=== PATIENT | male | born 1975 | race African-American/Black ===

== ENCOUNTER 2016-10-13 06:56 | Emergency (ER) | payer SELFPAY ==
[~2016-10-13] VITALS: Ht 182.9 cm; Wt 95.3 kg
[2016-10-13 07:09] VITALS: BP_DIAS 112
[2016-10-13 07:45] LABS: BASO % 1 % (0-3); EOS % 0 % (0-3); LYMPH # 0.7 x10^3/uL (1.0-4.8); LYMPH % 14 % (24-48); MEAN CORPUSCULAR HEMOGLOBIN 29 pg (25-35); MEAN CORPUSCULAR HGB CONC 33 g/dL (31-37); MEAN CORPUSCULAR VOLUME 87 fL (79-100); MONO % 5 % (0-9); NEUT % 80 % (31-73); PLATELET COUNT 188 x10^3/uL (140-400); RED BLOOD COUNT 5.19 x10^6/uL (4.30-5.70); RED CELL DISTRIBUTION WIDTH 13.6 % (11.5-14.5); WHITE BLOOD COUNT 4.9 x10^3/uL (4.0-11.0)
[2016-10-13] MEDS ORDERED: ONDANSETRON PF 4 MG/2 ML VIAL. IV ONE (07:45)
[2016-10-13] MEDS ORDERED: FAMOTIDINE 20 MG/2 ML VIAL IVP ONE (07:45)
[2016-10-13 07:53] LABS: PROTHROMBIN TIME PATIENT 12.9 SEC (11.7-14.0)
--- NOTE | 2016-10-13 07:56 | EKG ---
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
[2016-10-13 07:59] LABS: CALCIUM 9.7 mg/dL (8.5-10.1); CREATININE 1.2 mg/dL (0.7-1.3); GFR 80.7
--- NOTE | 2016-10-13 08:01 | PHYS DOC ---
Past Medical History Past Medical History: Constipation, Hypertension Past Surgical History: Other Additional Past Surgical Histo: back Alcohol Use: None Drug Use: None Adult General Chief Complaint Chief Complaint: SHORTNESS OF BREATH HPI HPI Patient is a 41 year old male with history of constipation and hypertension who presents today complaining of moderate mid epigastric abdominal pain nonradiating in nature that woke him up at 4 AM this morning with bilateral lower extremity weakness that he noted walking to his car this morning, he states they pack their vehicles very far out and they have to walk quite a bit to get to their vehicles. Patient denies any nausea vomiting. Patient states he had a normal bowel movement this morning. Patient denies he is constipated today. He states the last time he had similar symptoms he was told he was constipated. He is requesting morphine for pain. Review of Systems Review of Systems Constitutional: Denies fever or chills [] Eyes: Denies change in visual acuity, redness, or eye pain [] HENT: Denies nasal congestion or sore throat [] Respiratory: Denies cough or shortness of breath [] Cardiovascular: No additional information not addressed in HPI [] GI: Midepigastric abdominal pain : Denies dysuria or hematuria [] Musculoskeletal: Denies back pain or joint pain [] Integument: Denies rash or skin lesions [] Neurologic: Denies headache, focal weakness or sensory changes [] Endocrine: Denies polyuria or polydipsia [] Current Medications Current Medications Current Medications Medications (Trade) Dose Ordered Sig/Maddy Start Time Stop Time Status Last Admin Dose Admin Famotidine (Pepcid) 20 mg 1X ONCE 10/13/16 07:45 10/13/16 07:46 DC 10/13/16 07:52 20 MG Ketorolac Tromethamine (Toradol) 30 mg 1X ONCE 10/13/16 09:45 10/13/16 09:46 DC 10/13/16 09:40 30 MG Ondansetron HCl (Zofran) 4 mg 1X ONCE 10/13/16 07:45 10/13/16 07:46 DC 10/13/16 07:52 4 MG Allergies Allergies Allergies Coded Allergies Type Severity Reaction Last Updated Verified codeine Allergy Intermediate 10/13/16 Yes Physical Exam Physical Exam Constitutional: Well developed, well nourished, no acute distress, non-toxic appearance. [] HENT: Normocephalic, atraumatic, bilateral external ears normal, oropharynx moist, no oral exudates, nose normal. [] Eyes: PERRLA, EOMI, conjunctiva normal, no discharge. [] Neck: Normal range of motion, no tenderness, supple, no stridor. [] Cardiovascular:Heart rate regular rhythm, no murmur [] Lungs & Thorax: Bilateral breath sounds clear to auscultation [] Abdomen: abdomen appears distended, with normal bowel sounds, mild midepigastric tenderness, no right lower quadrant tenderness or right upper quadrant tenderness no masses, no pulsatile masses. [] Skin: Warm, dry, no erythema, no rash. [] Back: No tenderness, no CVA tenderness. [] Extremities: No tenderness, no cyanosis, no clubbing, ROM intact, no edema. [] Neurologic: Alert and oriented X 3, normal motor function, normal sensory function, no focal deficits noted. [] Psychologic: Affect normal, judgement normal, mood normal. [] Current Patient Data Vital Signs Vital Signs Date Time Temp Pulse Resp B/P (MAP) Pulse Ox O2 Delivery O2 Flow Rate FiO2 10/13/16 07:09 98.8 82 20 166/112 (130) 98 Room Air 98.8 Lab Values Laboratory Tests Test 10/13/16 07:25 10/13/16 08:20 White Blood Count 4.9 x10^3/uL (4.0-11.0) Red Blood Count 5.19 x10^6/uL (4.30-5.70) Hemoglobin 15.0 g/dL (13.0-17.5) Hematocrit 45.0 % (39.0-53.0) Mean Corpuscular Volume 87 fL (79-100) Mean Corpuscular Hemoglobin 29 pg (25-35) Mean Corpuscular Hemoglobin Concent 33 g/dL (31-37) Red Cell Distribution Width 13.6 % (11.5-14.5) Platelet Count 188 x10^3/uL (140-400) Neutrophils (%) (Auto) 80 % (31-73) H Lymphocytes (%) (Auto) 14 % (24-48) L Monocytes (%) (Auto) 5 % (0-9) Eosinophils (%) (Auto) 0 % (0-3) Basophils (%) (Auto) 1 % (0-3) Neutrophils # (Auto) 3.9 x10^3uL (1.8-7.7) Lymphocytes # (Auto) 0.7 x10^3/uL (1.0-4.8) L Monocytes # (Auto) 0.3 x10^3/uL (0.0-1.1) Eosinophils # (Auto) 0.0 x10^3/uL (0.0-0.7) Basophils # (Auto) 0.0 x10^3/uL (0.0-0.2) Prothrombin Time 12.9 SEC (11.7-14.0) Prothrombin Time INR 1.0 (0.8-1.1) D-Dimer (Marilu) 0.27 ug/mlFEU (0.00-0.50) Sodium Level 143 mmol/L (136-145) Potassium Level 4.0 mmol/L (3.5-5.1) Chloride Level 107 mmol/L (98-107) Carbon Dioxide Level 27 mmol/L (21-32) Anion Gap 9 (6-14) Blood Urea Nitrogen 16 mg/dL (8-26) Creatinine 1.2 mg/dL (0.7-1.3) Estimated GFR (Cockcroft-Gault) 80.7 BUN/Creatinine Ratio 13 (6-20) Glucose Level 125 mg/dL (70-99) H Calcium Level 9.7 mg/dL (8.5-10.1) Magnesium Level 1.8 mg/dL (1.8-2.4) Total Bilirubin 0.2 mg/dL (0.2-1.0) Aspartate Amino Transferase (AST) 15 U/L (15-37) Alanine Aminotransferase (ALT) 27 U/L (16-63) Alkaline Phosphatase 75 U/L (46-116) Creatine Kinase 164 U/L (39-308) Creatine Kinase MB (Mass) 0.9 ng/mL (0.0-3.6) Creatine Kinase MB Relative Index 0.5 % (0-4) Troponin I Quantitative < 0.017 ng/mL (0.000-0.055) YJ-Tny-S-Type Natriuretic Peptide < 5 pg/mL (0-124) Total Protein 7.0 g/dL (6.4-8.2) Albumin 3.9 g/dL (3.4-5.0) Albumin/Globulin Ratio 1.3 (1.0-1.7) Lipase 181 U/L (73-393) Thyroid Stimulating Hormone (TSH) 1.551 uIU/mL (0.358-3.74) Ethyl Alcohol Level < 10 mg/dL (0-10) Urine Collection Type Unknown Urine Color Yellow Urine Clarity Cloudy Urine pH 8.0 Urine Specific [place] 1.020 Urine Protein Negative mg/dL (NEG-TRACE) Urine Glucose (UA) Negative mg/dL (NEG) Urine Ketones (Stick) Negative mg/dL (NEG) Urine Blood Negative (NEG) Urine Nitrite Negative (NEG) Urine Bilirubin Negative (NEG) Urine Urobilinogen Dipstick 0.2 mg/dL (0.2 mg/dL) Urine Leukocyte Esterase Negative (NEG) Urine RBC 0 /HPF (0-2) Urine WBC 0 /HPF (0-4) Urine Amorphous Sediment Present /HPF Urine Bacteria 0 /HPF (0-FEW) Urine Opiates Screen Neg (NEG) Urine Methadone Screen Neg (NEG) Urine Barbiturates Neg (NEG) Urine Phencyclidine Screen Neg (NEG) Urine Amphetamine/Methamphetamine Neg (NEG) Urine Benzodiazepines Screen Neg (NEG) Urine Cocaine Screen Neg (NEG) Urine Cannabinoids Screen Neg (NEG) Urine Ethyl Alcohol Neg (NEG) Laboratory Tests 10/13/16 07:25 Laboratory Tests 10/13/16 07:25 EKG EKG [] Radiology/Procedures Radiology/Procedures [] Course & Med Decision Making Course & Med Decision Making Pertinent Labs and Imaging studies reviewed. (See chart for details) This is a 41-year-old male patient who presents to the ED with midepigastric abdominal pain and bilateral lower extremity weakness that began this morning. Patient states the last time he had similar symptoms was constipated. He has been asking for more often since he came to the ED. He is constantly getting out of his room asking for morphine. I talked to this patient on the relationship of the relationship of constipation. Patient's labs including including cardiac workup are negative for any acute findings. Chest x-ray and head CT were negative for any acute findings. Noted for stool and gas in the colon. Patient be discharged with instructions to follow-up with the PCP in 1-2 weeks. Discharged with 10 tablets of Ultram for pain and Mag citrate. Dragon Disclaimer Dragon Disclaimer This electronic medical record was generated, in whole or in part, using a voice recognition dictation system. Departure Departure Impression: Primary Impression: Abdominal pain Additional Impression: Constipation Disposition: 01 HOME, SELF-CARE Condition: STABLE Patient Instructions: Abdominal Pain, Constipation, Adult Additional Instructions: You seen for abdominal pain. You were noted for stool and gas in your colon. Avoid taking narcotics because it increases your risk for constipation episodes. Increase your dietary fiber intake, increase your water intake. Scripts Magnesium Citrate (MAGNESIUM CITRATE) 296 Ml Solution 296 ML PO ONCE, #296 ML Prov: JOSÉ MIGUEL IRBY APRN 10/13/16 Tramadol Hcl (ULTRAM) 50 Mg Tablet 1 TAB PO Q6HRS, #10 TAB Prov: JOSÉ MIGUEL IRBY APRN 10/13/16 Problem Qualifiers Primary Impression: Abdominal pain Abdominal location: epigastric Qualified Codes: R10.13 - Epigastric pain Additional Impression: Constipation Constipation type: unspecified constipation type Qualified Codes: K59.00 - Constipation, unspecified JOSÉ MIGUEL IRBY APRN Oct 13, 2016 08:01
[2016-10-13 08:05] LABS: ALBUMIN 3.9 g/dL (3.4-5.0); ALBUMIN/GLOBULIN RATIO 1.3 (1.0-1.7); MAGNESIUM 1.8 mg/dL (1.8-2.4); TOTAL BILIRUBIN 0.2 mg/dL (0.2-1.0)
[2016-10-13 08:12] LABS: CKMB MASS 0.9 ng/mL (0.0-3.6); CREATINE KINASE 164 U/L (39-308)
--- NOTE | 2016-10-13 08:23 | RAD ---
Indication lower extremity weakness. Suspect CVA. Noncontrast images of the head were obtained and are compared to an examination over 9 years earlier. No acute or significant calvarial finding is seen. There is no significant finding seen in the visualized mastoid air cells or paranasal sinuses. A polyp or retention cyst is noted in the right maxillary sinus. There is no subdural or epidural hematoma. The ventricles and sulci are normal. There is no mass or midline shift. No hemorrhage is seen. No acute intracranial finding is apparent. IMPRESSION: No acute intracranial finding PQRS Compliance Statement: One or more of the following individualized dose reduction techniques were utilized for this examination: 1. Automated exposure control 2. Adjustment of the mA and/or kV according to patient size 3. Use of iterative reconstruction technique
[2016-10-13 08:27] LABS: BILIRUBIN,URINE NEGATIVE (NEG); GLUCOSE,URINE NEGATIVE (NEG); NITRITE,URINE NEGATIVE (NEG); PROTEIN,URINE NEGATIVE (NEG-TRACE); UROBILINOGEN,URINE 0.2 mg/dL (0.2 mg/dL)
--- NOTE | 2016-10-13 08:29 | RAD ---
Indication abdominal pain. A single view of the chest as well as flat and upright films of the abdomen were obtained. No prior imaging of the chest or abdomen is available. Heart size and pulmonary vessels are normal. No acute parenchymal infiltrate in either lung is seen. Significant pleural fluid is not present and there is no pneumothorax. Scoliosis and a Rodriguez mary lou are noted. There is no evidence of free air. There is very little gas in the small bowel. Gas and stool is seen in the right and transverse colon. No organomegaly or definite abnormal calculi are seen. IMPRESSION: No acute finding seen in the chest or abdomen on plain films
[2016-10-13 08:32] LABS: BACTERIA,URINE 0 /HPF (0-FEW); RBC,URINE 0 /HPF (0-2); WBC,URINE 0 /HPF (0-4)
[2016-10-13 08:35] LABS: BARBITURATES NEG (NEG); BENZODIAZEPINES NEG (NEG); CANNABINOIDS NEG (NEG); COCAINE NEG (NEG); METHADONE NEG (NEG); OPIATES NEG (NEG); PHENCYCLIDINE NEG (NEG)
[2016-10-13] MEDS ORDERED: KETOROLAC TROMETHAMINE 30 MG/ML INJ. IV ONE (09:45)
[2016-10-13] MEDS ORDERED: MAGN296S9 PO (09:53)
[2016-10-13] MEDS ORDERED: TRAM-48 PO (09:53)
[2016-10-13 10:00] VITALS: BP_SYST 96
== END 2016-10-13 10:02 | disposition home or self-care (01) ==
LOC: ER 06:56
DX: K59.00 Constipation, unspecified (principal); R53.1 Weakness; I10 Essential (primary) hypertension; Z88.5 Allergy status to narcotic agent
CPT/HCPCS: 36415; 70450; 74022; 80053; 80307; 81001; 82553; 83690; 83735; 83880; 84443; 84484; 85027; 85379; 85610; 93005; 96374; 96375; 99285; G0480; J1885; J2405; S0028; G0479

== ENCOUNTER 2016-12-07 15:39 | Emergency (ER) | payer BC ==
[~2016-12-07] VITALS: Ht 182.9 cm; Wt 99.8 kg
[~2016-12-07 15:39] MED LIST: MAGN296S9 PO; TRAM-48 PO
[2016-12-07 16:18] VITALS: BP 142/95
--- NOTE | 2016-12-07 16:27 | PHYS DOC ---
Past Medical History Past Medical History: Constipation, Hypertension Past Surgical History: Other Additional Past Surgical Histo: back Alcohol Use: None Drug Use: None Adult General Chief Complaint Chief Complaint: BACK PAIN OR INJURY HPI HPI Patient is a 41 year old male with history of hypertension and constipation who presents today with mild right anterior hip pain that began 3 weeks ago after he fell in the home. Patient denies any loss of consciousness when he fell. Patient denies any loss of bowel bladder function. He has history of chronic low back pain Review of Systems Review of Systems Constitutional: Denies fever or chills [] GI: Denies abdominal pain, nausea, vomiting, bloody stools or diarrhea [] : Denies dysuria or hematuria [] Musculoskeletal: Right hip pain Integument: Denies rash or skin lesions [] Neurologic: Denies headache, focal weakness or sensory changes [] Allergies Allergies Allergies Coded Allergies Type Severity Reaction Last Updated Verified codeine Allergy Intermediate 10/13/16 Yes Physical Exam Physical Exam Constitutional: Well developed, well nourished, no acute distress, non-toxic appearance. [] Abdomen: Bowel sounds normal, soft, no tenderness, no masses, no pulsatile masses. [] Skin: Warm, dry, no erythema, no rash. [] Back: No tenderness, no CVA tenderness. [] Extremities: No tenderness, no cyanosis, no clubbing, ROM intact, no edema. [] Neurologic: Alert and oriented X 3, normal motor function, normal sensory function, no focal deficits noted. [] Psychologic: Affect normal, judgement normal, mood normal. [] Current Patient Data Vital Signs Vital Signs Date Time Temp Pulse Resp B/P (MAP) Pulse Ox O2 Delivery O2 Flow Rate FiO2 12/07/16 16:18 98.1 60 16 98 Room Air 98.1 EKG EKG [] Radiology/Procedures Radiology/Procedures [] Course & Med Decision Making Course & Med Decision Making Pertinent Labs and Imaging studies reviewed. (See chart for details) This is a 41-year-old male patient presenting to the right hip pain. He states he fell down 3 weeks ago. Right hip x-rays including pelvic interpreted by were negative for any acute findings. Patient was discharged with Ultram and Robaxin. Instructed to follow-up with his own PCP in 1-2 weeks. Ice elevation recommended. Dragon Disclaimer Dragon Disclaimer This electronic medical record was generated, in whole or in part, using a voice recognition dictation system. Departure Departure Impression: Primary Impression: Contusion of right hip Disposition: HOME, SELF-CARE Condition: STABLE Referrals: NO PCP (PCP) Follow up with your doctor in the next 7 days. TANJA MORALES MD follow up in the next seven days Patient Instructions: Contusion, [id number] Additional Instructions: You were seen with right hip contusion after falling. Your right hip x-rays including pelvic were negative for any acute findings. We discharged you with medications to help with the pain. Do not drive or operate machinery on those medications. Follow-up with your doctor next week. Scripts Tramadol Hcl (ULTRAM) 50 Mg Tablet 1 TAB PO Q6HRS, #30 TAB Prov: JOSÉ MIGUEL IRBY APRN 12/07/16 Methocarbamol (ROBAXIN) 500 Mg Tablet 1 TAB PO TID, #30 TAB Prov: JOSÉ MIGUEL IRBY APRN 12/07/16 Problem Qualifiers Primary Impression: Contusion of right hip Encounter type: initial encounter Qualified Codes: S70.01XA - Contusion of right hip, initial encounter JOSÉ MIGUEL IRBY APRN Dec 07, 2016 16:27
[2016-12-07] MEDS ORDERED: METH-37 PO (17:04)
[2016-12-07] MEDS ORDERED: TRAM-48 PO (17:04)
--- NOTE | 2016-12-08 08:54 | RAD ---
Right hip 2 views with one view pelvis. History: Pain Single view was taken of the pelvis. Left hip is unremarkable. Pelvis is intact without osseous abnormality. AP and lateral views were taken of the right hip. There is no fracture or acute osseous abnormality. There is mild scoliosis in the lumbar spine with a mary lou which suggests previous fusion. Impression: 1. Negative right hip.
== END 2016-12-07 17:09 | disposition home or self-care (01) ==
LOC: ER 15:39
DX: S70.01XA Contusion of right hip, initial encounter (principal); I10 Essential (primary) hypertension; G89.29 Other chronic pain; Z88.5 Allergy status to narcotic agent; W18.39XA Other fall on same level, initial encounter; Y93.89 Activity, other specified; Y92.009 Unspecified place in unspecified non-institutional (private) residence as the place of occurrence of the external cause; Y99.8 Other external cause status
CPT/HCPCS: 73502; 99284

== ENCOUNTER → 2016-12-31 | Outpatient (CLI) | payer BC ==
[2016-12-07 16:18] VITALS: BP 142/95
[~2016-12-31] MED LIST changes: +METH-37 PO; +REGADENOSON 0.4 MG/5 ML DISP.SYRIN. IV ONE
--- NOTE | 2016-12-31 12:34 | RAD ---
APPROVED REPORT Test Type: Pharmacological Stress Nurse/Tech: meghna millan Test Indications: chest pain Cardiac History: HTN, SEE EHR Medications: SEE EHR Medical History: NONE STATED Resting ECG: SR Resting Heart Rate: 64 bpm Resting Blood Pressure: 127/89mmHg Pretest Chest Pain: No chest pain Nurse/Tech Notes LUNG SOUNDS CLEAR, S1S2 WNL. Consent: The procedure was explained to the patient in lay terms. Informed consent was witnessed. Christian eout was entered into [employer]. History and Stress Test performed by RT Giovanna (R) (N) Pharm. Details Pharmacologic stress testing was performed using 0.4mg per 5ml of regadenoson given intravenously ove r 7-10 seconds. Stress Symptoms HEADACHE. POST EXERCISE Reason for Termination: Infusion complete Max HR: 116 bpm Max Blood Pressure: 133/93mmHg Chest Pain: No. Arrhythmia: No. ST Change: No. INTERPRETATION Stress EKG Conclusion: No evidence of vasodilator stress induced ischemia. Non-specific ST/T changes. Imaging Protocol IMAGE PROTOCOL: Rest Tc-99m/stress Tc-99m 1 day Rest: Stress: Viability: Radiopharm.Tc99m EemjwefbnNm47u Sestamibi Rptt32eFt 31mCi Img Date 12/31/2016 12/31/2016 Inj-Img Tusl51vlb. 60min. Rest Admin Site:IV - Right AntecubitalAdministrator:TASIA Sanchez, MACOT (R)(N) Stress Admin Site: IV - Right AntecubitalAdministrator: RT Goivanna (R)(N) STRESS DATA End Diast. Vol.114.0mlAv. Heart Rate65.0bpm End Syst. Vol.37.0mlCO Index BSA0.0L/min Myocardial Tyyi235.0gEject. Kupwhuyj34.0% Stress Rates Pk. Fill Rate2.86EDV/secLVtime Pk. Fill 220.00msec Pk. Empty Rate3.57ESV/secLVtime Pk. Efoam500.31msec 03/12 Pk. Fill1.25EDV/sec Stress Scores Regional WT0.00Summed WT4.00 Regional WM0.00Summed WM1.00 The rest and stress images show normal perfusion, normal contraction and thickening. LV Perf. Quant 17 Seg. SSS0.00 17 Seg. SRS1.00 17 Seg. SDS0.00 Stress Defect Extent (% LAD)0.00Rest Defect Extent (% LAD)0.00Rev. Defect Extent (% LAD)0.00 Stress Defect Extent (% LCX) 0.00Rest Defect Extent (% LCX)0.00Rev. Defect Extent (% LCX)0.00 Stress Defect Extent (% RCA)0.00Rest Defect Extent (% RCA)11.10Rev. Defect Extent (% RCA)0.00 Stress Defect Extent (% BOOM)0.00Rest Defect Extent (% BOOM)2.20Rev. Defect Extent (% BOOM)0.00 Other Information Quality:Fair Risk Assessment: Low Risk Conclusion 1. No evidence of stress induced EKG changes to suggest ischemia with vasodilator infusion 2. Normal perfusion at stress/rest 3. Normal EF at > 65% 4. Low risk study
--- NOTE | 2017-01-01 07:44 | CARD ---
APPROVED REPORT EXAM: Two-dimensional and M-mode echocardiogram with Doppler and color Doppler. Other Information Quality : Good INDICATION Chest Pain 2D DIMENSIONS Left Atrium(2D)3.5 (1.6-4.0cm)IVSd1.2 (0.7-1.1cm) Aortic Root(2D)3.1 (2.0-3.7cm)LVDd5.2 (3.9-5.9cm) LVOT Diameter2.0 (1.8-2.4cm)PWd1.2 (0.7-1.1cm) LVDs3.4 (2.5-4.0cm)FS (%) 34.6 % SV82.2 mlLVEF(%)63.4 (>50%) Aortic Valve AoV Peak Ilya.128.0cm/sAoV VTI28.5cm AO Peak GR.6.6mmHgLVOT Peak Ilya.110.4cm/s AO Mean GR.3mmHgAVA (VMAX)2.74cm2 DULCE (VTI)2.70cm2 Mitral Valve MV E Sfbdgugp33.7cm/sMV DECEL JKBY212ry MV A Qpuodotc58.6cm/sE/A Ratio1.4 Tricuspid Valve TR P. Sxcuudls295vj/sRAP ETKGFUDY9oaSv TR Peak Gr.23hsVsJYFP97ymMu LEFT VENTRICLE The left ventricle is normal size. There is mild concentric left ventricular hypertrophy. Left ventri devin systolic function is normal. The Ejection Fraction is 55-60%. There is normal LV segmental wall m otion. RIGHT VENTRICLE The right ventricle is normal size. The right ventricular systolic function is normal. ATRIA The left atrium size is normal. The right atrium size is normal. Chiari network is noted in the right atrium. The interatrial septum is intact with no evidence for an atrial septal defect or patent fora men ovale as noted on 2-D or Doppler imaging. AORTIC VALVE The aortic valve is normal in structure and function. Doppler and Color Flow revealed no significant aortic regurgitation. There is no significant aortic valvular stenosis. MITRAL VALVE The mitral valve is normal in structure and function. There is no evidence of mitral valve prolapse. There is no mitral valve stenosis. Doppler and Color Flow revealed no mitral valve regurgitation note d. TRICUSPID VALVE The tricuspid valve is normal in structure and function. Doppler and Color Flow revealed trace tricus pid valve regurgitation. The PA pressure was estimated at 25 mmHg. There is no tricuspid valve stenos is. PULMONIC VALVE The pulmonary valve is normal in structure and function. Doppler and Color Flow revealed no pulmonic valvular regurgitation. There is no pulmonic valvular stenosis. GREAT VESSELS The aortic root is normal in size. The ascending aorta is normal in size. The IVC is normal in size a nd collapses >50% with inspiration. PERICARDIAL EFFUSION There is no pleural effusion. There is no evidence of significant pericardial effusion. Critical Notification Critical Value: No <Conclusion> Left ventricle systolic function is normal. The Ejection Fraction is 55-60%. There is normal LV segmental wall motion. Trace tricuspid valve regurgitation. The PA pressure was estimated at 25 mmHg. There is no evidence of significant pericardial effusion.
== END | disposition home or self-care (01) ==
LOC: NM 15:28
PROVIDERS: ATTEND Internal Medicine Cardiovascular Disease
DX: I49.5 Sick sinus syndrome (principal); I51.7 Cardiomegaly; I31.3 Pericardial effusion (noninflammatory); I10 Essential (primary) hypertension
CPT/HCPCS: 78452; 93017; 93306; 96374; 96375; 96376; A9500; J2785